=== PATIENT | female | born 1995 | race Caucasian/White ===

== ENCOUNTER → 2018-01-17 | Outpatient (CLI) | payer OTHER ==
--- NOTE | 2018-01-17 14:34 | RADIOLOGY IMAGING REPORT ---
FACILITY: [facility] PATIENT NAME: Angelina Treviño : 1995 MR: [id number] V: [id number] EXAM DATE: ORDERING PHYSICIAN: SAMUEL MACIAS TECHNOLOGIST[place] [facility] [place] : 1995 Visit/Account:[id number] Date of Sevice: 01/17/2018 Right upper abdomen ultrasound. HISTORY: Epigastric pain. COMPARISON: None. The liver measures 12.6 cm in sagittal length. The liver is free of focal defects. The surface of the liver is smooth. The portal vein is patent. No intra or extrahepatic biliary dilatation. The gallbla dder is unremarkable. The sonographic Dye's sign is negative. The pancreas is unremarkable. The ri ght kidney is normal in size. No hydronephrosis. No ascites. Portions of the abdominal aorta and infe rior vena cava are obscured. The spleen and left kidney were not included. The common bile duct measu res 3.1 mm in greatest AP diameter. IMPRESSION: Negative right upper abdomen. Report Dictated By: Tevin Maldonado MD at 01/17/2018 2:27 PM Report E-Signed By: Tevin Maldonado MD at 01/17/2018 2:29 PM WSN:[id number]
== END ==
LOC: US 13:27
PROVIDERS: ATTEND Nurse Practitioner Family
DX: R10.13 Epigastric pain (principal)
CPT/HCPCS: 76705